=== PATIENT | female | born 1970 ===

== ENCOUNTER 2017-04-10 08:57 | Day surgery (SDC) | payer BC ==
[2017-04-10 09:18] VITALS: BMI 31.3
[2017-04-10] MEDS ORDERED: Lactated Ringer's 1,000 ML IV ONE (10:41)
--- NOTE | 2017-04-10 10:41 | CP.SDSHP ---
Same Day Surgery H & P - History Proposed Procedure: EGD Pre-Op Diagnosis: nausea, abdominal pain - Allergies Allergies: Allergies ANESTHESIA Allergy (Uncoded 04/10/17 09:18) NAUSEA - Physical Exam General Appearance: NAD Vital Signs: Vital Signs 04/10/17 09:19 Temperature 98.6 F Pulse Rate 90 Respiratory 18 Rate Blood Pressure 121/90 O2 Sat by Pulse 98 Oximetry Mental Status: Alert & Oriented x3 Neuro: WNL Heart: WNL Lungs: WNL GI: WNL - {Optional Preform as Required} Abdomen: WNL - Impression Pt. Evaluated Today:Candidate for Anesthesia & Procedure: Yes - Date & Time Date: 04/10/17 Time: 10:41 Short Stay Discharge - Short Stay Discharge Admitting Diagnosis/Reason for Visit: NAUSEA Disposition: HOME/ ROUTINE
[2017-04-10] MEDS ORDERED: Propofol 10 mg/ml Inj (20 ML) ONE ×2 (10:43)
[2017-04-10] MEDS ORDERED: Lidocaine Hydrochloride 10 ML INJ ONE (10:57)
[2017-04-10 11:15] VITALS: TEMP 97.8
[2017-04-10 11:49] VITALS: BP 116/83
[2017-04-10 11:51] VITALS: PULSE 63; RESP 15; O2SAT 99
== END 2017-04-10 12:17 | disposition home or self-care (01) ==
LOC: C.ENDO 08:57
PROVIDERS: ATTEND Internal Medicine Gastroenterology
DX: R11.0 Nausea (principal); R10.13 Epigastric pain; K21.0 Gastro-esophageal reflux disease with esophagitis; K29.70 Gastritis, unspecified, without bleeding
CPT/HCPCS: 43239; 84703; 88305; J2704; J7120